=== PATIENT | female | born 1975 ===

== ENCOUNTER 2018-01-25 16:07 | Emergency (ER) | payer OTHER ==
[~2018-01-25] VITALS: Ht 157.5 cm; Wt 52.2 kg
[~2018-01-25 16:07] MED LIST: ANTICONCEPTIVOS; BRETHINE5 MG PO; KETO10TA2 PO; MAGONATE PO; MECLIZINE HCL25 MG PO; MEDROL4 MG PO; ORPH100T PO; TUSICOF LIQUID120 ML PO; VISTARIL
[2018-01-25] MEDS ORDERED: PROZAC20 MG (16:19)
== END 2018-01-25 19:32 | disposition home or self-care (01) ==
LOC: ER 16:07
DX: S00.83XA Contusion of other part of head, initial encounter (principal); M62.838 Other muscle spasm; W22.8XXA Striking against or struck by other objects, initial encounter; Y93.89 Activity, other specified; Y92.69 Other specified industrial and construction area as the place of occurrence of the external cause; Y99.8 Other external cause status

== ENCOUNTER 2021-01-21 08:00 | Outpatient (CLI) | payer OTHER ==
[~2021-01-21 08:00] MED LIST changes: +PROZAC20 MG
== END 2021-01-21 08:30 | disposition home or self-care (01) ==
LOC: PPH VACUNA 08:00
DX: Z23 Encounter for immunization (principal)

== ENCOUNTER 2024-02-28 08:38 | Outpatient (CLI) | payer OTHER | END 2024-02-28 08:39 | disposition home or self-care (01) | LOC: RAD 08:38 | DX: M25.522 Pain in left elbow (principal); M79.632 Pain in left forearm; M25.532 Pain in left wrist ==